=== PATIENT | male | born 1935 | race Asian ===

== ENCOUNTER 2017-05-02 16:23 | Inpatient (IN) | payer OTHER ==
[~2017-05-02] VITALS: Ht 172.7 cm; Wt 68.5 kg
[~2017-05-02 16:23] MED LIST: APAP/HYDROCODON1 T13 PO; BG MC; CLOPIDOGREL75 M1 PO; DEXPF IV; ECO81 PO; ELD5 PO; FLO1 PO; FLO4 PO; FLUDROCORTISON0.1 MG PO; GLU850 PO; HUMULIN R100 U/1 M1 SC; IPRATROPIUM BROM3 M2 HHN; LANTUS SOLOS100 U/M1 SC; LEVEMIR100 U/M1 SC; LIPI20 PO; MOR2I IV; NEU300 PO; NIT0.4 SL; NOR5 PO; PLA75 PO; PROTONIX40 MG/Pac1 PO; SEROQUEL100 MG PO; SEROQUEL25 MG PO; SINEMET 25-1001 TAB PO; THERAGRAN-M1 TA4 PO; TYL325 PO; ZOFI IV
--- NOTE | 2017-05-02 16:29 | NUR ---
PT BIB [facility] FOR C/O GENERALIZED WEAKNESS. PER REPORT PT STS THAT PT HAS HAD GENERALIZED WEAKENSS FOR THE PAST COUPLE OF DAYS. FAMILY STS PT HAS BEEN C/O RT THIGH PAIN WELL. PT UPON ARRIVAL TO ED IS AWAKE AND ALERT TO PERSON AND B DAY, WHEN ASKED ABOUT DATE AND YEAR PT DOES NOT HAVE THE ANSWER. PTS BREATHING IS EVEN AND UNLABORED. PER FAMILY PTS BP HAS BEEN ALL OVER THE PLACE SOMETIMES HIGH AND SOMETIMES LOW. PTS SKIN IS WARM AND DRY TO TOUCH, PTS FAMILY REPORTS PT HAS A RASH ON BOTH FEET. PT IS PLACED IN GOWN ON CM WITH CALL LIGHT IN REACH.
--- NOTE | 2017-05-02 18:00 | NUR ---
MSE COMPLETED BY DR SHELBY
[2017-05-02] MEDS ORDERED: BENAZEPRIL HYDR20 M1 PO (18:05)
[2017-05-02] MEDS ORDERED: RESTORIL15 MG PO (18:05)
[2017-05-02] MEDS ORDERED: SENOKOT8.6 MG PO (18:05)
--- NOTE | 2017-05-02 18:05 | NUR ---
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 FAMILY ALSO STS PT LAST NIGHT HAD A FEVER AND A COUGH.
--- NOTE | 2017-05-02 18:15 | NUR ---
ULTRASOUND AT BEDSIDE.
--- NOTE | 2017-05-02 18:20 | NUR ---
[facility] AT [facility] FOR BLOOD DRAW
[2017-05-02 19:07] LABS: BASOPHIL % 0.4 % (0-2); PLATELET COUNT 138 x10^3mcL (130-400); RED CELL DISTRIBUTION WIDTH 14.2 % (11.5-14.5)
[2017-05-02 19:10] LABS: CHLORIDE SERUM 105 mmol/L (98-107); CREATININE SERUM 0.8 mg/dL (0.7-1.3); GLUCOSE SERUM 288 mg/dL (74-106); POTASSIUM SERUM 3.9 mmol/L (3.5-5.1); SODIUM SERUM 140 mmol/L (136-145)
--- NOTE | 2017-05-02 19:15 | NUR ---
REPORT GIVEN TO MICHAEL SMITH TO ASSUME CARE OF PT PTS PRIMARY NURSE.
--- NOTE | 2017-05-02 19:18 | NUR ---
RECIEVED REPORT FROM ANGELES SMITH TO ASSUME CARE OF PT. PT LAYING IN GURNEY IN POSTION OF COMFORT, RESP EVEN AND UNLABORED. NO DISTRESS NOTED
[2017-05-02 19:21] LABS: ALKALINE PHOSPHATASE 89 U/L (46-116); ALT/SGPT 21 U/L (16-63); AST/SGOT 19 U/L (15-37); BILIRUBIN TOTAL 0.52 mg/dL (0.20-1.00); TOTAL PROTEIN, SERUM 6.5 g/dL (6.4-8.2)
[2017-05-02 19:22] LABS: CK-MB 2.6 ng/mL (0-3.6)
[2017-05-02 19:23] LABS: ALBUMIN 2.6 g/dL (3.4-5.0)
--- NOTE | 2017-05-02 19:36 | NUR ---
CHANGED PT ADULT DIAPER, + LARGE AMOUNT OF URINE. NO REDNESS OR SKIN BREAKDOWN NOTED
[2017-05-02 21:21] LABS: microscopic required? YES; urine erythrocyte 3+ (NEGATIVE)
[2017-05-02 21:49] LABS: MAGNESIUM 2.1 mg/dL (1.8-2.4)
[2017-05-02 21:52] LABS: CHOLESTEROL/HDL RATIO 2.5
[2017-05-02 21:54] LABS: T3 TOTAL 0.76 ng/mL
[2017-05-02 21:57] LABS: FREE T4 0.97 ng/dL (0.76-1.46); FREE THYROXINE INDEX 2.4 ug/dL (1.4-4.5); T4(THYROXINE) 6.5 ug/dL (4.7-13.3)
[2017-05-02 22:43] VITALS: BP 142/86
--- NOTE | 2017-05-02 22:47 | NUR ---
RECEIVED PT FROM ED VIA [email or web address]. ORIENTED PT TO ROOM AND SURROUNDINGS. IV NOTED TO LAC PATENT AND INTACT. TELE 13 PLACED ON PT READING SR WITH ELEVATED T WAVE. INSTRUCTED PT ON THE USE OF CALL LIGHT FOR ASSISTANCE. ENDORSED PT TO PRIMARY NURSE NATALIE
--- NOTE | 2017-05-02 22:50 | NUR ---
RECIEVED REPORT FROM SARAH ERAZO. URDU SPEAKING, FAMILY AT BEDSIDE. TELE #13 READING NSR WITH ELEVATED T WAVE. RADIAL AND PEDAL PULSES PALPABLE, NO EDEMA. RASH NOTED TO BLE, PICTURES TAKEN. BREATHING EVEN AND UNLABORED, ON RA. DENIES PAIN AT THIS TIME. NS INFUSING @ 100 ML/HR TO LEFT FA, NO REDNESS OR SWELLING. BED IN LOW POSITION, CALL LIGHT IN REACH. INSTRUCTED TO CALL FOR ASSISTANCE.
--- NOTE | 2017-05-03 02:44 | NUR ---
RESTING IN BED WITH EYES CLOSED. AWAKENS EASILY TO VERBAL STIMULI. BREATHING EVEN AND UNLABORED. NO ACUTE DISTRESS NOTED. CALL LIGHT IN REACH. WILL CONTINUE TO MONITOR.
[2017-05-03 03:06] LABS: CALCIUM 8.6 mg/dL (8.5-10.1); CARBON DIOXIDE 27.6 mmol/L (21-32); CHLORIDE SERUM 109 mmol/L (98-107); CREATININE SERUM 0.7 mg/dL (0.7-1.3); GLUCOSE SERUM 156 mg/dL (74-106); MAGNESIUM 2.1 mg/dL (1.8-2.4); PHOSPHOROUS 3.6 mg/dL (2.5-4.9); POTASSIUM SERUM 4.4 mmol/L (3.5-5.1); SODIUM SERUM 142 mmol/L (136-145)
[2017-05-03 03:11] LABS: BASOPHIL % 0.7 % (0-2); PLATELET COUNT 215 x10^3mcL (130-400); RED CELL DISTRIBUTION WIDTH 13.9 % (11.5-14.5)
--- NOTE | 2017-05-03 06:28 | NUR ---
RESTING WITH EYES CLOSED. AWAKENS EASILY TO VERBAL STIMULI. PLACED PT ON AIR MATTRESS. IV PATENT AND INFUSING. NO ACUTE CHANGES DURING SHIFT. WILL ENDORSE TO ONCOMING RN.
--- NOTE | 2017-05-03 08:00 | NUR ---
DR. ORELLANA AND OTHER MEDICAL STAFF MADE RUNS AND UPDATED PT PLAN OF CARE.
[2017-05-03 09:40] VITALS: BP 92/55
[2017-05-03 10:00] VITALS: BP 92/55
--- NOTE | 2017-05-03 10:00 | NUR ---
RE- INSERTED IV ACCESS IN RT. FA W/ GOOD BLOOD RETURN ,PT. WENT DOWN TO US VIA BED.
--- NOTE | 2017-05-03 11:00 | NUR ---
PT. BACK FROM CT HEAD AND NOTED. PT. PULLED OUT AGAIN HIS IV ACCESS. APPEARS CONFUSED AND FORGETFUL . MADE PT. COMFORTABLE IN BED. CALL LIGHT W/ IN REACH
--- NOTE | 2017-05-03 13:00 | NUR ---
RE- INSERTED NEW IV ACCESS IN RT. WRIST W/ GOOD BLOOD RETRUN ,INSTRUCTED OT NOT TO PULLED OUT IV ACCESS .
[2017-05-03 13:12] VITALS: BP 153/79
--- NOTE | 2017-05-03 14:41 | NUR ---
PT. IS AWAKE/ALERT, BUT FORGETFUL AND CONFUSED. ABLE TO FOLLOW SIMPLE COMMANDS. RECEIVED WITH NO IV ACCESS FROM HEPATOLOGY PHYSICIAN. TOTAL CARE RENDERED. INCONTINENT URINATION AND DEFACTION. KEEP PT. CLEAN AND DRY. NO ACUTE DISTRESS NOTED. WILL CONTINUE PLAN OF CARE.
[2017-05-03 17:10] VITALS: BP 94/58
--- NOTE | 2017-05-03 18:45 | NUR ---
PT. QUIETE AND FOLLOW SIMPLE COMMAND. DENIES ANY PAIN THE WHOLE DAY.CALL LIGHT W/ IN REACH.
--- NOTE | 2017-05-03 20:00 | NUR ---
RECEIVED PT IN BED, ALERT AND AWAKE. CONFUSED. RESP. EVEN AND UNLABORED. ON ROOM AIR, NO DISTRESS NOTED. SR ON THE MONITOR, NO EVIDENCE OF ANY DISCOMFORT NOTED AT THIS TIME. IVF, NS AT 100ML/HR, INTACT AND INFUSING VIA RT WRIST, SITE CLEAR. ON AIR MATTRESS , TURNED AND REPOSITIONED FOR COMFORT. HS CARE DONE. CALL LIGHT WITHIN REACH. WILL CONTINUE TO MONITOR.
[2017-05-03 21:17] VITALS: BP 171/85
--- NOTE | 2017-05-04 00:04 | NUR ---
INCONT. OF STOOL AND URINE, CLEANED AND KEPT COMFORTABLE. APPEARS ASLEEP AT THIS TIME. NO DISTRESS NOTED. WILL CONTINUE TO MONITOR.
[2017-05-04 05:44] VITALS: BP 133/67
--- NOTE | 2017-05-04 06:34 | NUR ---
AFEBRILE AND VITAL SIGNS STABLE. RESP. EVEN AND UNLABORED. NO DISTRESS NOTED. TURNED AND REPOSITIONED Q2HRS AND PRN. IVF INTACT AND INFUSING WELL, SITE CLEAR. SLEPT WELL. NO SIGNIFICANT CHANGE NOTED IN PT,S CONDITION. WILL ENDORSE TO INCOMING NURSE.
[2017-05-04 07:04] LABS: BASOPHIL % 0.4 % (0-2); PLATELET COUNT 192 x10^3mcL (130-400); RED CELL DISTRIBUTION WIDTH 13.6 % (11.5-14.5)
[2017-05-04 07:27] LABS: CALCIUM 8.5 mg/dL (8.5-10.1); CARBON DIOXIDE 26.4 mmol/L (21-32); CHLORIDE SERUM 106 mmol/L (98-107); CREATININE SERUM 0.7 mg/dL (0.7-1.3); GLUCOSE SERUM 163 mg/dL (74-106); POTASSIUM SERUM 3.5 mmol/L (3.5-5.1); SODIUM SERUM 139 mmol/L (136-145)
[2017-05-04 08:45] VITALS: BP 93/59
--- NOTE | 2017-05-04 09:01 | NUR ---
PT ON BED, AWAKE, ALERT, AND ORIENTED X1. PT IS CONFUSED AT TIMES. RESPONDS POORLY TO QUESTION AND ANSWER. CLEAR REECE LUNG FIELD, SYMMETRICAL CHEST EXPANSION AND UNLABORED. ACTIVE BOWEL SOUNDS NOTED. NON DISTENDED ABDOMEN. PT IS INCONTINENT AT TIMES. SIDE RAILS UP, CALL LIGHT WITHIN REACH, WILL CONTINUE TO MONITOR
--- NOTE | 2017-05-04 11:30 | NUR ---
PT'S ACCUCHECK SHOWED 196. 3 UNITS OF REGULAR INSULIN GIVEN COVERAGE
--- NOTE | 2017-05-04 13:00 | NUR ---
DR. CEDILLO AND DR. ZHANG AT BEDSIDE TALKING TO THE PATIENT'S FAMILY MEMBER JUVENAL SOFIA ([phone]). PT'S FAMILY REQUESTING TO HAVE THE PATIENT TRANSFERRED TO A FACILITY THEY WANT. CASE MANAGEMENT TO BE MADE AWARE BY WILL CONTINUE TO MONITOR
[2017-05-04 13:20] VITALS: BP 135/70
--- NOTE | 2017-05-04 13:30 | NUR ---
PT UP WITH PHYSICAL THERAPY
--- NOTE | 2017-05-04 16:09 | NUR ---
PHYSICAL THERAPY DAILY NOTES CO-SIGN All documentation done by the [facility] for 05/04/17 has been reviewed. I agree with the documentation. Reviewed/Co-Signed by: Scarlet Nicholas PT Documentation Done by:JAYA COVINGTON OFFICE CLERK ROUTINE POC REVIEWED W/ OFFICE CLERK ROUTINE; PROGRESS MICHELLE.
--- NOTE | 2017-05-04 17:00 | NUR ---
PT'S ACCUCHECK SHOWED 258. 9 UNITS GIVEN COVERAGE
[2017-05-04 17:13] VITALS: BP 145/80
--- NOTE | 2017-05-04 17:59 | NUR ---
PT ON BED, AWAKE, ALERT, AND ORIENTED TO SELF. HAS NO COMPLAINT OF PAIN, SOB, OR DIZZINESS. NO FACIAL GRIMACE NOTED. SIDE RAILS UP, CALL LIGHT WITHIN REACH, WILL CONTINUE TO MONITOR
--- NOTE | 2017-05-04 20:00 | NUR ---
PT. AWAKE, ALERT, ORIENTED TO SELF AND PERSON, FOLLOWING SOME SIMPLE COMMANDS. UNDERSTANDS SOME SIMPLE ITALIAN WORDS. ABLE TO MOTION SOME OF HIS NEEDS. PHONE AVAILABLE FOR TRANSLATION. BREATH SOUNDS CLEAR THROUGHOUT LUNG [place], RESP. EVEN, UNLABORED. NO SOB NOTED. ON RA. NSR ON MONITOR. IVF NS AT 100CC/HR. PEDAL PULSES STRONG REECE. NO EDEMA NOTED TO EXTREMITIES. ABD. SOFT AND ROUND, BOWEL SOUNDS ACTIVE. BED LOW LAYING W/ ALRM ON.
[2017-05-04 21:08] VITALS: BP 168/89
--- NOTE | 2017-05-05 03:15 | NUR ---
PT. RESTING QUIETLY, EYES CLOSED. APPEARS COMFORTABLE. NO C/O PAIN THUS FAR. IVF NS INFUSING WELL. SITE WNL. CALL LIGHT REMAINS WITHIN REACH, BED LOW LAYING W/ ALARM ON.
[2017-05-05 05:48] VITALS: BP 154/84
[2017-05-05 06:19] LABS: BASOPHIL % 0.6 % (0-2); PLATELET COUNT 202 x10^3mcL (130-400); RED CELL DISTRIBUTION WIDTH 13.9 % (11.5-14.5)
[2017-05-05 06:35] LABS: CALCIUM 8.7 mg/dL (8.5-10.1); CARBON DIOXIDE 29.6 mmol/L (21-32); CHLORIDE SERUM 109 mmol/L (98-107); CREATININE SERUM 0.7 mg/dL (0.7-1.3); GLUCOSE SERUM 140 mg/dL (74-106); POTASSIUM SERUM 3.9 mmol/L (3.5-5.1); SODIUM SERUM 144 mmol/L (136-145)
[2017-05-05 09:18] VITALS: BP 107/81
--- NOTE | 2017-05-05 13:00 | NUR ---
PT'S FAMILY WAS MADE AWARE OF THE UPDATED INFORMATION FROM CASE MANAGEMENT. MADE AWARE OF PT BEING ACCEPTED AT [facility]. WILL CONTINUE TO MONITOR
[2017-05-05 13:01] VITALS: BP 97/63
[2017-05-05 14:30] VITALS: BP 131/82
--- NOTE | 2017-05-05 14:38 | NUR ---
PT UP WITH PHYSICAL THERAPY. SIDE RAILS UP, CALL LIGHT WITHIN REACH, WILL CONTINUE TO MONITOR
--- NOTE | 2017-05-05 15:25 | NUR ---
GAVE REPORT TO SARAH WEST AT [facility].
--- NOTE | 2017-05-05 15:47 | NUR ---
PHYSICAL THERAPY DAILY NOTES CO-SIGN All documentation done by the Field Services Manager for 05/05/17 has been reviewed. I agree with the documentation. Reviewed/Co-Signed by: Gege Matthew PT Documentation Done by: Nika Beatty DEVELOPMENTAL MATHEMATICS PROFESSOR Pt c/o dizziness pito to particiapte with limited functional activity as he is non-ambulatory baseline.
--- NOTE | 2017-05-05 18:04 | NUR ---
D/C INSTRUCTION DONE. IV AND TELE HAS BEEN D/C. CONSENT OBATINED THROUGH PHONE WITH JUVENAL SOFIA. PT'S SON
== END 2017-05-05 18:09 | DRG 56 ==
LOC: ED 16:23 → DU 20:56
PROVIDERS: Emergency Medicine; ADMIT Family Medicine
DX: G20 Parkinson's disease (principal); G93.41 Metabolic encephalopathy; E43 Unspecified severe protein-calorie malnutrition; D68.69 Other thrombophilia; E11.51 Type 2 diabetes mellitus with diabetic peripheral angiopathy without gangrene; E86.0 Dehydration; I10 Essential (primary) hypertension; E78.5 Hyperlipidemia, unspecified; Z79.4 Long term (current) use of insulin; F02.80 Dementia in other diseases classified elsewhere, unspecified severity, without behavioral disturbance, psychotic disturbance, mood disturbance, and anxiety; Z74.01 Bed confinement status; M62.50 Muscle wasting and atrophy, not elsewhere classified, unspecified site
CPT/HCPCS: 83880; 84439; 97110-GP; 97530-GP; J1815; J7030; Q0092